=== PATIENT | female | born 1935 | race Caucasian/White ===

== ENCOUNTER → 2024-04-17 09:24 | Outpatient (REF) | payer MEDICARE, OTHER, SELFPAY ==
[2024-04-17 12:16] LABS: Blood Urea Nitrogen 19 mg/dl (7-17); Calcium 9.6 mg/dl (8.4-10.2); Carbon Dioxide 30 mmol/L (22-30); Chloride 99 mmol/L (98-107); Glucose 99 mg/dl (70-99); Potassium 4.5 mmol/L (3.5-5.1); Sodium 138 mmol/L (135-145); eGFR > 60.00
== END ==
LOC: REG 09:24
PROVIDERS: ATTENDING PHYSICIAN Thoracic Surgery (Cardiothoracic Vascular Surgery); FAMILY PHYSICIAN Internal Medicine; REFERRING PHYSICIAN Internal Medicine Critical Care Medicine
DX: D49.89 Neoplasm of unspecified behavior of other specified sites (principal)
CPT/HCPCS: 36415; 80048

== ENCOUNTER → 2024-04-28 10:05 | Outpatient (REF) | payer MEDICARE, OTHER, SELFPAY | LOC: RAD 10:05 | PROVIDERS: ATTENDING PHYSICIAN Thoracic Surgery (Cardiothoracic Vascular Surgery) | DX: D49.89 Neoplasm of unspecified behavior of other specified sites (principal) | CPT/HCPCS: 71270; Q9967 ==

== ENCOUNTER → 2024-06-10 14:30 | Outpatient (REF) | payer MEDICARE, OTHER, SELFPAY | LOC: WDC 14:30 | PROVIDERS: ATTENDING PHYSICIAN Family Medicine | DX: Z12.31 Encounter for screening mammogram for malignant neoplasm of breast (principal) | CPT/HCPCS: 77063; 77067 ==

== ENCOUNTER → 2025-07-03 10:08 | Outpatient (REF) | payer MEDICARE, OTHER, SELFPAY | LOC: HWRCS 10:08 | PROVIDERS: ATTENDING PHYSICIAN Physician Assistant; FAMILY PHYSICIAN Family Medicine | DX: I10 Essential (primary) hypertension (principal); I47.0 Re-entry ventricular arrhythmia; R06.09 Other forms of dyspnea | CPT/HCPCS: 93306 ==

== ENCOUNTER → 2025-07-14 14:06 | Outpatient (REF) | payer MEDICARE, OTHER, SELFPAY | LOC: WDC 14:06 | DX: Z12.31 Encounter for screening mammogram for malignant neoplasm of breast (principal) | CPT/HCPCS: 77063; 77067 ==

== ENCOUNTER 2025-07-21 21:53 | Inpatient (IN) | payer MEDICARE, OTHER, SELFPAY ==
[2025-07-21] VITALS (8 sets, daily range): BP systolic 141–213; BP diastolic 77–121; BMI 28.5; BMI 27.3
--- NOTE | 2025-07-21 19:08 | ED.GENMED ---
History of Present Illness
General
Chief Complaint: Heart Rate Problem
Source: patient, records and family
Exam Limitations: none
Time Seen by Provider: 07/21/25 18:46
Nursing documentation reviewed up to this point in time: agreed with
History of Present Illness
History of Present Illness:
89-year-old female history of PAF she is anticoagulated on Xarelto, medications are Coreg, which was recently started, Xarelto, Lasix
Earlier today developed a fast heart rate fatigue dizziness mild headache, feels short of breath so much so that she has trouble walking, similar episodes in the past, never required cardioversion,
Past History
Past History
ED Past Medical History: Cancer (Breast CA) and HTN; Negative NIDDM
ED Past Surgical History: Orthopedic (Ankle surgery) and Other (Cataracts, right Mastectomy); Negative Cardiac
Social History
Tobacco: Non-smoker
Alcohol: None
Drug: None
Personal:
Living: alone
Employment: Retired
Family History
Family History: Other (Contributory)
Review of Systems
Review of Systems
All Other Systems: Not applicable
Constitutional: Reports fatigue; Denies chills
Cardiac: Reports diaphoresis and palpitations; Denies chest pain
ABD/GI: Reports no symptoms
: Reports no symptoms
Musculoskeletal: Reports no symptoms
Neurological: Reports dizzy, headache and weakness
Endocrine: Reports no symptoms
Hematologic/Lymphatic: Reports no symptoms
Phy Exam
Physical Exam
Physical Exam:
Physical Exam
General: 89 female dyspneic
Neck: Positive J VD
Heart: Tachycardic
Lungs: Crackles at the base
Abdomen: Nontender
Neuro: alert and oriented. no focal neurological deficits
Skin: no rash
Psychiatric: well kept. interactive and cooperative
Extremities: Edema is present
Course
Orders/Labs/Results
Orders:
Orders
07/21/25 17:54
ECG [Electrocardiogram (*1)] Urgent
Reason for Study: Tachycardia
EKG- Treatment ONCE
07/21/25 19:04
IV Insert/Care/Rem.- Treatment PRN
Diltiazem HCl [Cardizem] 20 mg IV NOW STA
07/21/25 19:05
Cardiac Monitoring- Treatment ONCE
Diltiazem 125 mg/125 ml Nss [Cardizem] 125 mg in 125 ml IV NOW
Initial dose in mg/hr, then titrate:: 5
Titrate to keep:: Heart rate 80-100 bpm
Titrate by mg/hr:: 5 mg/hr
Frequency of titrations (minutes):: 15
Maximum dose in mg/hr:: 15
CR Chest Portable - 1 View Urgent
Comment:
Reason For Exam: sob
Reason Study Needs to be Portable: Patient Unstable
07/21/25 19:09
CT Head W/o Iv Contrast Urgent
Comment:
Reason For Exam: Headache weakness anticoagulated
07/21/25 19:19
Complete Blood Count/With Diff Urgent
Comprehensive Metabolic Panel Urgent
Magnesium Urgent
NT-proBNP Urgent
TSH Urgent
Troponin I Urgent
Abnormal Lab Results
07/21/25
19:19
RBC 4.07 L 10^6/uL
(4.20-5.40)
MCV 99.8 H fL
(81.0-99.0)
MCH 33.7 H pg
(27.0-31.0)
MPV 11.5 H fL
(7.4-10.4)
Absolute Monos (auto) 0.8 H 10^3/uL
(0.1-0.6)
Lymphocytes % 16.7 L %
(20.5-51.1)
Monocytes % 11.5 H %
(1.7-9.3)
Sodium 134 L mmol/L
(135-145)
Glucose 103 H mg/dl
(70-99)
07/21/25 19:19
07/21/25 19:19
Vital Signs
Initial and Last Documented VS:
Initial Vital Signs
Temp Pulse Resp BP Pulse Ox
97.9 F 126 18 213/121 95
07/21/25 17:50 07/21/25 17:50 07/21/25 17:50 07/21/25 17:50 07/21/25 17:50
Last Documented Vital Signs
Temp Pulse Resp BP Pulse Ox
97.9 F 90 20 162/88 95
07/21/25 17:50 07/21/25 20:30 07/21/25 20:30 07/21/25 20:00 07/21/25 19:09
MDM/Problems Addressed
Differential Diagnosis Includes:
A-fib RVR heart failure ischemia deconditioning electrolyte abnormality thyroid
MDM/Problems Addressed:
Tachycardia
Chronic conditions affecting care: Arrhythmia
Acute Exacerbation and/or Progression of Chronic Illness: Arrhythmia
*Radiology
Radiology exam reviewed: preliminary read by ED provider
*Pulse Oximetry
SaO2: 95
Oxygen Mode of Delivery: Room air
Patient hypoxic: no
*EKG
Interpreted by ED Provider?: Yes
Interpretation: abnormal
Comparison EKG: no comparison EKG present
Heart Rate: 145
Rate: tachycardiac
Rhythm: a-fib
Ischemia: non-specific ST changes
*Novelty Chain Maker Interpretation
Rate: tachycardiac
Interpretation: abnormal
Heart Rate: 145
Rhythm: a-fib
*Critical Care Note
Total Time (30-74mins, 75-104mins- exclusive of procedures): 30
Update Note
Update Note:
915 update patient still in A-fib rapid response on 5 mg of diltiazem, I did previously mention cardioversion to her, she never had that before, she is also recently eating dinner, not ideal, message sent to hospitalist and installer interior assemblies, will keep
her in the hospital and IV Dilt,
ED Attending Note
-
Portions of this chart may have been created with voice recognition software.� Occasional wrong word or��sound alike� substitutions may have occurred due to the inherent limitations of voice recognition software.
Discharge Plan
Departure
Patient Disposition: Admit
Date of Disposition: 07/21/25
Time of Disposition: 21:21
Admit to: IVU
Presentation/result/management discussed w/ accepting MD/DO: Hospitalist
Patient with high blood pressure during this ER visit?: Yes
Condition: Fair
Discharge Problem:
Atrial fibrillation with RVR
Prescriptions:
No Action
amlodipine 5 mg Tablet
5 mg PO DAILY
metoprolol tartrate 50 mg Tablet
50 mg PO BID
Xarelto 20 mg Tablet
20 mg PO QPM
Rx Instructions:
Hold for IR procedure 08/31 x 2 days
furosemide 20 mg Tablet
20 mg PO DAILY
hydralazine 10 mg tablet
10 mg PO BID Qty: 14 0RF
Referrals:
Maryjane Butler MD [Family Provider, Family Practice]
Interventions
Interventions:
*Risk Screen - Suicide Last Done: 07/21/25 17:50
*General Assessment Last Done: 07/21/25 19:04
*Neglect/Abuse Screening Last Done: 07/21/25 19:04
*ED- Fall Risk Assessment Last Done: 07/21/25 19:36
*ED COVID-19 Vaccine History Last Done: 07/21/25 19:36
ED- Cardiac Assessment Last Done: 07/21/25 19:04
ED- Pulmonary Assessment Last Done: 07/21/25 19:36
Discharge Date and Time
Print Language: THAI
[2025-07-21] MEDS: CARDIZEM 125 IV (19:24)
[2025-07-21] MEDS: CARDIZEM 20 MG IV (19:24)
[2025-07-21 19:50] LABS: ALT (SGPT) 16 U/L (0-35); AST (SGOT) 25 U/L (14-36); Albumin 4.3 g/dl (3.5-5.0); Alkaline Phosphatase 82 U/L (38-126); Blood Urea Nitrogen 14 mg/dl (7-17); Calcium 9.4 mg/dl (8.4-10.2); Carbon Dioxide 27 mmol/L (22-30); Chloride 101 mmol/L (98-107); Estimated Creatinine Clearance 63 ml/min; Glucose 103 mg/dl (70-99); Magnesium 2.0 mg/dl (1.6-2.3); Potassium 4.4 mmol/L (3.5-5.1); Sodium 134 mmol/L (135-145); Total Protein 6.6 g/dl (6.3-8.2); eGFR > 60.00
[2025-07-21 20:07] LABS: Troponin I 0.013 ng/ml
[2025-07-21 20:24] LABS: Hematocrit 40.6 % (37.0-47.0); Hemoglobin 13.7 g/dL (12.0-16.0); Mean Corp Hgb Conc. 33.7 g/dL (33.0-37.0); Mean Corpuscular Volume 99.8 fL (81.0-99.0); Nucleated Red Blood Cells % 0 %; Platelet Count 232 10^3/uL (130-400); Red Cell Dist. Width 13.3 % (11.5-14.5)
--- NOTE | 2025-07-21 20:42 | EDRN ---
Pt started Cardizem at 192. At 193, Pt HR was between 80 and 100, BP had started to come down. At 1953, Pt HR was still between 80-100, and Pt stated that she was feeling better. Cardizem was not titrated due to parameters being met at 5 mg/hr.
--- NOTE | 2025-07-21 21:22 | HPS.HSE ---
Addendum entered and electronically signed by Emily Macario MD 07/21/25 23:33:
This is an addendum to the H&P written by Ysabel Brown on 07/21/2025. �Patient seen and examined independently with HORTICULTURAL WORKER
89-year-old female past medical history of paroxysmal atrial fibrillation on Xarelto, hyponatremia, breast cancer, hypertension, presenting with elevated heart rate, fatigue and dizziness and mild headache and shortness of breath.� Follows [facility].�
Vital signs reveal blood pressure 213/121. �Heart rate of 126.
EKG shows atrial fibrillation with RVR up to 129.
Patient started on Cardizem drip. �TSH pending. �Echocardiogram from 07/03 shows normal ejection fraction. �CT head shows no acute abnormality.
Patient not interested in cardioversion tonight. �Cardiology consulted. �N.p.o. past midnight.
Original Note:
Family Physician
-
Family Physician: Maryjane Butler MD
Chief Complaint
-
rapid heart rate
History of Present Illness
89-year-old female history of PAF, HTN m presented to us with rapid heart rate while she was sitting and watching TV. for some weeks, she is having trouble with rapid heart rate for which she was started on Metoprolol with no relief in her
symptoms. metoprolol was switched to some other medication now she is on coreg for past 6 days. she felt very sob, fatigue, dizzy and was having trouble walking. denied chest pain.denied abdominal pain,n,v,d. denied dysuria or hematuria.
Upon arrival patient was noted in A-fib with RVR. Cardizem initiated. Admitted for further management
Medical History
Past Medical History
Past Medical History: Reports Other
Additional Past Medical History:
Breast cancer
PMH
Hypertension
A-fib
Colon polyps
Shingles
Past Surgical History: Reports Other
Additional Past Surgical History:
Cataract extraction
Weight
Right ankle fracture
Social History
Tobacco: Non-smoker
Alcohol: None
Drug: None
Family History
Family History: Not pertinent
Allergies / Home Medications
Allergies reflects when Allergies were last updated in [facility].
Home Medications with original date entered in [facility]
Allergy/Medication List:
Allergies
Allergy/AdvReac Type Severity Reaction Status Date / Time
No Known Allergies Allergy Verified 07/21/25 17:50
Home Medications
amlodipine 5 mg tablet 5 mg PO DAILY 08/28/23
metoprolol tartrate 50 mg tablet 50 mg PO BID 08/28/23
rivaroxaban 20 mg tablet (Xarelto) 20 mg PO QPM 08/28/23
furosemide 20 mg tablet 20 mg PO DAILY 08/31/23
hydralazine 10 mg tablet 10 mg PO BID #14 tabs 09/23/23
Review of Systems
-
Constitutional: Reports No Symptoms
EENT: Reports No Symptoms
Respiratory: Reports Trouble Breathing
Cardiac: Reports Palpitations
Abdomen/GI: Reports No Symptoms
: Reports No Symptoms
Musculoskeletal: Reports No Symptoms
Skin: Reports No Symptoms
Neurological: Reports Dizzy and Weakness
Endocrine: Reports No Symptoms
Hematologic/Lymphatic: Reports No Symptoms
Psych: Reports No Symptoms
Physical Exam
Vital Signs
Vital Signs
Temp Pulse Resp BP Pulse Ox
97.9 F 90 20 162/88 95
07/21/25 17:50 07/21/25 20:30 07/21/25 20:30 07/21/25 20:00 07/21/25 19:09
Physical Exam
General: Well Developed, Well Nourished and No Apparent Distress
HEENT: NormoCephalic, Moist mucous membranes and Atraumatic
Respiratory: Clear
Cardiac: Irregular Rhythm and Tachycardia; No Murmur or Rub
GI: Soft, Non Tender, Non Distended and Normal Bowel Sounds; No Organomegaly
Rectal: Deferred by Provider
Musculoskeletal: No Clubbing, No Cyanosis and No Edema
Skin: No Rash
Neuro: Nonfocal/grossly intact
Laboratory Results
-
07/21/25 19:19
07/21/25 19:19
Laboratory Results
Total Bilirubin 0.7 mg/dl (0.2-1.3) 07/21/25 19:19
AST 25 U/L (14-36) 07/21/25 19:19
ALT 16 U/L (0-35) 07/21/25 19:19
Alkaline Phosphatase 82 U/L (38-126) 07/21/25 19:19
Troponin I 0.013 ng/ml 07/21/25 19:19
Data Reviewed
-
Lab Data: Labs Reviewed by me
Impression/Plan
-
#atrial fib with RVR
-iv Cardizem continued
-cardioversion tomorrow
-NPO after MN
-Continue Coreg and Xarelto
# Essential hypertension
-Hydralazine continued
-Lasix continued
# DVT prophylaxis
-On Xarelto
# CODE STATUS
-Full code
-
[2025-07-21 22:54] LABS: TSH 2.13 uIU/ml (0.47-4.68)
[2025-07-21] MEDS: XARELTO 20 MG PO (23:49)
[2025-07-21] MEDS: APRESOLINE 25 MG PO (23:49)
[2025-07-22] VITALS (12 sets, daily range): BP systolic 118–157; BP diastolic 54–84; BMI 27.3
--- NOTE | 2025-07-22 04:42 | PTCARENOTE ---
Rec'd pt as admission from ED. Pt AAO*3, VSS, and Afib on TELE monitor. Pt denies any pain or discomfort. Cardizem infusing as ordered with HR in the 80's. Pt kept NPO after midnight for possible procedure in AM and now resting with call esteban in
reach. See MAR and flowchart for full pt care and assessment.
[2025-07-22] MEDS: LASIX 20 MG PO (09:02)
[2025-07-22] MEDS: COREG 6.25 MG PO ×2 (09:02→15:40)
[2025-07-22] MEDS: APRESOLINE 25 MG PO ×3 (09:02→22:21)
--- NOTE | 2025-07-22 09:45 | CM ---
Reviewed chart. Met with Mrs. Rodriguez and her daughter to review discharge plans. She states prior to admission she resides alone in a one level in-law suite attached to her daughters home. She states she has one step to enter the home. She states
prior to admission she was independent with ambulation and adls. She states she does not have any DME in the home. She states she has a prescription plan and uses [facility]. Medical work-up in progress. The discharge plan is to return home
when medically stable.
--- NOTE | 2025-07-22 11:20 | CON.CAR ---
Addendum entered and electronically signed by Juan Blair MD 07/22/25 15:22:
I personally performed a history and physical exam of the patient and discussed management with the resident. I reviewed the resident's note and agree with the documented findings and plan of care [facility]/CC.
PLan:
89-year-old female well-known to me with past medical history of hypertension, paroxysmal atrial fibrillation, breast cancer who presents to [facility] with palpitations and recurrent atrial fibrillation. Patient has been having
difficulties with palpitations and blood pressure issues as an outpatient. She was transition from metoprolol to diltiazem and ultimately to carvedilol over the past several weeks. Last yesterday she had episodes of skips and flutters and
palpitation was found to be in atrial fibrillation with rapid ventricular rate. She denies any chest pains, shortness of breath, orthopnea, PND, or edema. He does have fatigue and malaise. Her blood pressure have been better on the carvedilol.
Continue IV diltiazem and increase carvedilol to 12.5 mg p.o. twice daily. Check echocardiogram. Continue Xarelto. Has been compliant with the medication.
If she remains in A-fib in a.m. would proceed with elective cardioversion to attempt to restore sinus rhythm.
Recent echo from this month with preserved ejection fraction, mild MR and aortic sclerosis.
I had a lengthy discussion with her and her daughter regarding further treatment options for atrial fibrillation. They are interested in ablation and will arrange electrophysiology follow-up as outpatient.
Original Note:
Consultation
Consultation Request
Date/Time Consultation Requested: 07/21/25 21:43
Date/Time Consultation Performed: 07/22/25 10:30
Requesting Provider: Bear Burgos DO
Performing Provider: Cristofer Saucedo DO (Resident); Edmund Blair MD
Reason for Consultation: Palpitations
Medical History
-
Chief Complaint: Palpitations
History of Present Illness:
Jermaine Quiroz is a 89 F with a PMHx of atrial fibrillation with a recent rate-controlling medication change to Coreg 1 week ago, anticoagulated with Xarelto, HTN, fluid retention, and breast CA with radiation therapy to the right breast in 2005 who
is presenting with palpitations.
Patient states that she was diagnosed with atrial fibrillation approximately 2 years ago when she was hospitalized with RVR. At that time, patient was started on rate-control with Metoprolol, and her symptoms were adequately controlled until about 2
months ago when she started experience palpitations again. These symptoms were initially attempted to be managed with escalating doses of metoprolol (maxed at 75mg BID) without adequate response. 2 weeks ago, the patient was transitioned from
Metoprolol to Cardizem 120mg BID. 1 week into therapy, the patient continued to feel palpitations and a general feeling of unease, so she was then switched to Coreg 6.25 mg BID. Patient initially felt better on this medication for a few days but
then started to notice palpitations again. Yesterday, the patient continued to feel a general feeling of unease, as well as SOB and fatigue, and was brought to the emergency department. Otherwise denies, chest pains, headaches, dizziness,
pre-syncope, LOC or uncontrolled lower extremity edema.
ED COURSE
CBC wnl, CMP unremarkable, CXR neg, Head CT w/o IV neg, TSH nml, troponin neg, BNP WNL
EKG A/fib w/ RVR
Patient started on Cardizem drip
Patient states that she feels better this morning, denies feelings of palpitations, chest pains, SOB.
Past Medical History
Past Medical History: HTN and Other (a/fib, fluid retention, breast CA)
Past Surgical History: Other (cataract, mastectomy, R ankle)
Social History
Tobacco: Non-Smoker
Alcohol: Occasional
Drug: None
Family History
Family History: Reviewed & Not Pertinent
Allergies / Home Medications
Allergy/AdvReac Type Severity Reaction Status Date / Time
No Known Allergies Allergy Verified 07/21/25 17:50
�Medication �Instructions �Recorded �Confirmed �Type
rivaroxaban 20 mg tablet (Xarelto) 20 mg PO QPM 08/28/23 07/21/25 History
furosemide 20 mg tablet 20 mg PO DAILY 08/31/23 07/21/25 History
carvedilol 6.25 mg tablet 6.25 mg PO BID 07/21/25 07/21/25 History
hydralazine 10 mg tablet 25 mg PO TID 07/21/25 07/21/25 History
Review of Systems
-
History Source: Patient
All other systems: Negative unless noted
Physical Exam
Vital Signs
Temp Pulse Resp BP Pulse Ox
98.3 F 79 12 137/80 94
07/22/25 07:24 07/22/25 08:15 07/22/25 07:24 07/22/25 09:02 07/22/25 07:25
Lab Results
07/21/25 19:19
07/21/25 19:19
Troponin I 0.013 ng/ml 07/21/25 19:19
Krx-A-Tbvfgkldbtk Pept 425 pg/ml 07/21/25 19:19
Physical Exam
General: No Apparent Distress and Comfortable
Respiratory: Clear and Non Labored Respirations; Negative Wheezes, Crackles or Rhonchi
Cardiac: S1/S2, Irregular Rhythm and Other (regular rate); Negative Murmur or JVD
Skin: Warm
Neuro: Awake
Psych: Calm
Impression / Plan
-
Jermaine Quiroz is a 89 F with a PMHx of atrial fibrillation with a recent rate-controlling medication change to Coreg 1 week ago, anticoagulated with Xarelto, HTN, fluid retention, and breast CA with radiation therapy to the right breast in 2005 who
is presenting with palpitations, noted to be in A/fib with RVR by EKG in the ED and started on a Cardizem drip with recurrent runs of a/fib on telemetry.
PLAN
- Increase Coreg to 12.5mg BID
- Attempt to wean Cardizem drip
- If patient still in afib tomorrow, will consider cardioversion
- Outpatient follow up with EP to discuss risks and benefits of ablation
- Okay to eat today; NPO after midnight
Data Reviewed
-
EKG: Tracing Personally Visualized and interpreted, Report Reviewed by me and Discussed with Patient
Labs: Labs Reviewed by me and Discussed with Patient
Old Records: Reviewed
Critical Care Time (in minutes): 32
--- NOTE | 2025-07-22 13:56 | W.PN.HOSP.TC ---
Today's Communication/Plan
-
Assessment / Plan
Assessment / Plan
Atrial fibrillation with RVR
Increase Coreg to 12.5 twice daily
Wean Cardizem
If remains in atrial fibrillation plan for cardioversion tomorrow
Outpatient follow-up with cardiology/EP to discuss benefits of ablation
N.p.o. after midnight
2D echocardiogram
Continue anticoagulation with Xarelto
Hypertension
Continue antihypertensives
DVT prophylaxis on Xarelto
Anticipated Discharge: 24 - 48 hours
Subjective/Interval History
-
Date of Service: July 22, 2025
Seen and examined. No new complaints. No acute overnight events.
Objective Data
-
Vital Signs:
Vital Signs
Temp Pulse Resp BP Pulse Ox
98.5 F 75 18 137/80 92
07/22/25 13:00 07/22/25 13:00 07/22/25 13:00 07/22/25 09:02 07/22/25 13:00
I&O
07/21/25 07/22/25 07/23/25
06:59 06:59 06:59
Intake Total 240 / 240
Balance 240 / 240
Physical Exam
-
General: Well Developed, Well Nourished, No Apparent Distress and Comfortable
HEENT: Normocephalic and Atraumatic
Respiratory: Clear to Auscultation
Cardiac: S1/S2 and Irregular Rhythm
GI: Soft, Nontender and Nondistended
Musculoskeletal: No Clubbing, No Cyanosis and No Edema
Neuro: Awake and AO x 3
Psych: Calm
--- NOTE | 2025-07-22 15:00 | PTCARENOTE ---
Monitor showing pt converted from AF to NSR, EKG obtained. Dr. Blair made aware. To receive increased dose of coreg, then d/c cardizem drip. Informed pt/daughter of plan, all questions answered. Pt resting comfortably.
[2025-07-22] MEDS: XARELTO 20 MG PO (17:16)
[2025-07-22] MEDS: COREG 12.5 MG PO (21:21)
--- NOTE | 2025-07-22 22:50 | PTCARENOTE ---
Rec'd pt at change of shift. Pt AAO*3, VSS, and SR on TELE monitor. Pt denies any pain or discomfort. NPO after midnight as ordered. PT and family updated on plan of care. See MAR and flowchart for full pt care and assessment.
[2025-07-23 04:07] VITALS: BP 129/69
[2025-07-23 04:08] VITALS: BMI 27.2
[2025-07-23 07:42] VITALS: BP 139/73
[2025-07-23] MEDS: COREG 12.5 MG PO (08:23)
[2025-07-23] MEDS: LASIX 20 MG PO (08:23)
[2025-07-23] MEDS: APRESOLINE 25 MG PO ×2 (08:23→15:55)
--- NOTE | 2025-07-23 10:19 | W.PN.CARDCBS ---
Addendum entered and electronically signed by Juan Blair MD 07/23/25 17:46:
I saw and examined the patient.
The Laboratory Monitor's note was reviewed and I agree with the note.
Comment:
GEN: No distress, awake, Ox3
HEENT: supple, anicteric, mmm
LUNGS: CTA, no wheezes/rales
CV: Reg, S1/S2, 1/6 syst LSB, no gallop
ABD: soft, BS+, NT/ND
EXT: No edema
NEURO: Gross non-focal
SKIN: No rash
Plan:
She is back in sinus rhythm. Okay for discharge. Continue Coreg 12.5 mg twice daily and Xarelto.
Continue hydralazine and furosemide. Blood pressure is stable
We discussed ablation and she prefers to discuss this with Dr. Hartley as outpatient.
Original Note:
Today's Communication / Plan
-
Coreg 12.5 mg twice daily
Xarelto 20 mg every afternoon
Continue outpatient hydralazine and furosemide
Will arrange outpatient EP follow-up
for discharge
Impression / Plan
-
Primary Rn Perioperative: Dr. Blair
Assessment:
Paroxysmal atrial fibrillation, with RVR, s/p spontaneous conversion to SR 07/22/25
Chronic anticoagulation with Xarelto
Hypertension
Chronic heart failure with preserved EF
History of R breast cancer with radiation therapy 2005
ECHO 07/03/2025: EF 68%, mild MAC, mild MR, aortic sclerosis, normal right heart
PLAN:
-Patient presented with atrial fibrillation with rapid ventricular response. She was initially placed on IV Cardizem drip and her outpatient Coreg dose was increased from 6.25 mg twice daily to 12.5 mg twice daily
-She spontaneously converted to sinus rhythm around 1:30 yesterday afternoon and has remained in sinus rhythm since that time
-Continue outpatient Xarelto
-Recent echo with results as above
-Will arrange outpatient cardiac follow-up with EP to discuss ablation
-Okay for discharge today
-Discussed with nursing
-Discussed with hospitalist via [facility] text
Progress Note - Rn Perioperative
Subjective
Date of Service: July 23, 2025
No issues. Feeling well. Eager for discharge
Objective
Labs:
07/21/25 19:19
07/21/25 19:19
Labs
Hgb 13.7 g/dL (12.0-16.0) 07/21/25 19:19
Hct 40.6 % (37.0-47.0) 07/21/25 19:19
Plt Count 232 10^3/uL (130-400) 07/21/25 19:19
Sodium 134 mmol/L (135-145) L 07/21/25 19:19
Potassium 4.4 mmol/L (3.5-5.1) 07/21/25 19:19
BUN 14 mg/dl (7-17) 07/21/25 19:19
Creatinine 0.6 mg/dL (0.6-1.0) 07/21/25 19:19
Glucose 103 mg/dl (70-99) H 07/21/25 19:19
Troponins
07/21/25
19:19
Troponin I 0.013
Vital Signs and I&O:
Vital Signs
Temp Pulse Resp BP Pulse Ox
97.5 F 77 20 139/73 93
07/23/25 07:42 07/23/25 08:00 07/23/25 07:42 07/23/25 07:42 07/23/25 08:15
Vital Signs
Temp Pulse Resp BP Pulse Ox
97.5 F 77 20 139/73 93
07/23/25 07:42 07/23/25 08:00 07/23/25 07:42 07/23/25 07:42 07/23/25 08:15
Intake & Output
07/21/25 07/22/25 07/23/25 07/24/25
07:59 07:59 07:59 07:59
Intake Total 240 / 240 480 / 480
Balance 240 / 240 480 / 480
Physical Exam
Physical Exam
GEN: No distress, awake, alert, oriented x3
HEENT: supple, anicteric, mmm, EOMI
LUNGS: CTA bilaterally, no wheezes/rales
CV: Reg, S1/S2, no murmur
ABD: soft, BS+, NT/ND
EXT: No cyanosis, clubbing, edema
NEURO: Gross non-focal
SKIN: Warm, pink, dry. No rash
--- NOTE | 2025-07-23 11:56 | CM ---
Reviewed chart. Met with Mrs. Quiroz and daughter to review discharge plans. She states she is feeling well and maybe able to go home soon.
Prior to admission she resides alone in a one level in-law suite attached to her daughters home. She has one step to enter the home. Prior to admission she was independent with ambulation and adls. She does not have any DME in the home. She has
a prescription plan and uses [facility]. Medical work-up in progress. The discharge plan is to return home when medically stable.
[2025-07-23 11:59] VITALS: BP 114/66
[2025-07-23 15:13] VITALS: BP 111/54
--- NOTE | 2025-07-23 15:53 | W.DCSUMMARY ---
Discharge Summary
Discharge Data
Date of Admission: 07/21/25
Date of Discharge: 07/23/25
-
Pending Results: No
Hospital Course
89 female who presented with palpitations fatigue dizziness mild headache along with shortness of breath. Found to be in atrial fibrillation with RVR and hypertensive. Seen by cardiology which recommended to wean Cardizem drip increase carvedilol.
Eventually was able to convert to sinus rhythm and cardioversion was not needed as it was plan to cardiovert if still in atrial fibrillation the following day. Outpatient follow-up with electrophysiology to discuss risks and benefits of ablation.
Seen on the day of discharge which was 07/23/2025. No new complaints. No acute overnight events.
Feels significantly better since being in sinus rhythm
Sitting up in bedside chair
NAD
Scleral Anicteric
MMM
No JVD
CTABL
RRR, S1/S2
Soft, NT, ND, BS+
Warm, Dry
AAOx3
Calm
More than 30 minutes spent in discharge including
Final examination of the patient
Summarizing hospital stay
Instructions for continuing care to all relevant caregivers
Preparation of discharge records, prescriptions, and referral forms
Total time spent (in minutes): 33mins
Discharge Plan
-
Patient Disposition: Home (Routine Discharge)
Discharge Diagnosis/Procedures: Atrial fibrillation RVR
Condition: Good
Diet: As tolerated, Low Fat, Low Cholesterol, 2 Gram Sodium and No added salt
Activity: As tolerated
Activity Restrictions/Additional Instructions:
89 female who presented with palpitations fatigue dizziness mild headache along with shortness of breath. Found to be in atrial fibrillation with RVR and hypertensive. Seen by cardiology which recommended to wean Cardizem drip increase carvedilol.
Eventually was able to convert to sinus rhythm and cardioversion was not needed as it was plan to cardiovert if still in atrial fibrillation the following day. Outpatient follow-up with electrophysiology to discuss risks and benefits of ablation.
Referrals:
Maryjane Butler MD [Family Provider, [facility][1]]
Marcelino Pate DO [Active, Cardiology] - 08/25/25 10:20 am
Referral Note: You have an appointment with electrophysiology (cardiology) at the [place] office (same as Dr. Blair). Please call with questions
Prescriptions:
New
carvedilol 12.5 mg Tablet
12.5 mg PO BID Qty: 180 3RF
Continued
furosemide 20 mg Tablet
20 mg PO DAILY
hydralazine 10 mg tablet
25 mg PO TID
Xarelto 20 mg Tablet
20 mg PO QPM Qty: 0 0RF
Discontinued
carvedilol 6.25 mg tablet
6.25 mg PO BID
Discharge Orders:
Discharge Patient (As Directed); Ordered 07/23/25
Ordered By: Mateusz Fox
Care Plan Goals
Care Plan Goals:
Problem: Readiness for enhanced knowledge related to diagnosis and treatment plan
Goal: Understand your diagnosis and treatment plan needs, including medications if applicable.
Instructions: Know your diagnosis, underlying causes and treatment plan options, including medications if applicable. Consult with your health care team to learn about your diagnosis and treatment plan, including medications if applicable.
Discharge Date and Time
Print Language: GUYANESE
[2025-07-23 15:56] VITALS: BP 145/68
--- NOTE | 2025-07-23 16:12 | PTCARENOTE ---
IV and tele removed. Discharge instructions reviewed w/ pt and verbalizes understanding. Belongings collected and sent home w/ pt. D/c to home w/ family member.
== END 2025-07-23 16:13 | disposition home or self-care (01) | DRG 309 ==
LOC: IVU 21:53
PROVIDERS: ADMITTING PHYSICIAN Hospitalist; ATTENDING PHYSICIAN Hospitalist; CONSULT PHYSICIAN Internal Medicine Cardiovascular Disease; EMERGENCY PHYSICIAN Emergency Medicine; FAMILY PHYSICIAN Family Medicine
DX: I48.0 Paroxysmal atrial fibrillation (principal); E87.1 Hypo-osmolality and hyponatremia; I50.32 Chronic diastolic (congestive) heart failure; I10 Essential (primary) hypertension; Z79.01 Long term (current) use of anticoagulants; Z79.899 Other long term (current) drug therapy
CPT/HCPCS: 70450; 71045; 80053; 83735; 83880; 84443; 84484; 85025; 93005; 96365; 96366; 99291

== ENCOUNTER → 2025-09-02 12:40 | Outpatient (REF) | payer MEDICARE, OTHER, SELFPAY ==
[2025-09-02 13:35] LABS: INR 1.32; PT 16.9 Sec (11.4-14.6)
[2025-09-02 13:50] LABS: ALT (SGPT) 16 U/L (0-35); AST (SGOT) 26 U/L (14-36); Albumin 4.3 g/dl (3.5-5.0); Alkaline Phosphatase 66 U/L (38-126); Blood Urea Nitrogen 15 mg/dl (7-17); Calcium 9.3 mg/dl (8.4-10.2); Carbon Dioxide 31 mmol/L (22-30); Chloride 101 mmol/L (98-107); Glucose 108 mg/dl (70-99); Magnesium 1.9 mg/dl (1.6-2.3); Potassium 4.3 mmol/L (3.5-5.1); Sodium 136 mmol/L (135-145); Total Protein 6.9 g/dl (6.3-8.2); eGFR > 60.00
[2025-09-02 14:11] LABS: Hematocrit 41.5 % (37.0-47.0); Hemoglobin 14.3 g/dL (12.0-16.0); Mean Corp Hgb Conc. 34.5 g/dL (33.0-37.0); Mean Corpuscular Volume 98.8 fL (81.0-99.0); Nucleated Red Blood Cells % 0 %; Platelet Count 210 10^3/uL (130-400); Red Cell Dist. Width 13.0 % (11.5-14.5)
== END ==
LOC: SDSPAT 12:40
PROVIDERS: ATTENDING PHYSICIAN Internal Medicine Cardiovascular Disease; FAMILY PHYSICIAN Family Medicine; OTHER PHYSICIAN Internal Medicine Cardiovascular Disease
DX: I48.0 Paroxysmal atrial fibrillation (principal)
CPT/HCPCS: 36415; 75572; 80053; 83735; 85025; 85610; 86850; 86900; 86901; Q9967

== ENCOUNTER 2025-09-14 06:01 | Day surgery (SDC) | payer MEDICARE, OTHER, SELFPAY ==
[2025-09-02 13:11] VITALS: BMI 27.9
[2025-09-14] VITALS (12 sets, daily range): BP systolic 157–212; BP diastolic 72–90
--- NOTE | 2025-09-14 07:55 | ITS.CL.ABL ---
Special Systems Technician - Ablation
Ablation
Procedure Report:
Primary Medical Cost Consultant: Dr Edmund Blair
Procedure Date: 09/14/2025
Patient History:
Patient is a pleasant 89-year-old female with a past medical history significant for hypertension, history of breast cancer with radiation, symptomatic paroxysmal atrial fibrillation.
See H&P for complete details.
Indication:
Symptomatic paroxysmal atrial fibrillation
Arrhythmia Specific History:
Prior Medical Therapies for Rate and Rhythm Control:
X Beta-shelli
[ ] Calcium channel-shelli
[ ] Amiodarone
[ ] Dronederone
[ ] Sotalol
[ ] Flecainide
[ ] Dofetilide
[ ] Options limited by bradycardia
[ ] Options limited by comorbid renal disease
Prior Procedural Therapies for AF/AFL:
[ ] Cardioversion
[ ] Pulmonary Vein Isolation
[ ] Posterior Wall Isolation
[ ] Additional lines (Specify)
[ ] Surgical Joshi-MAZE or PVI (Specify)
Procedure Performed:
X AF ablation procedure (13571) -- includes LA/CS pacing, trans-septal, 3D mapping, + ICE
[ ] +IV drug (78309)
[ ] +Other Arrhythmia (99008)
[ ] +Other AF Line/ablation (21948)
Risks and expected recovery has been explained in detail. Alternative options have been explored, and in a shared-decision making fashion we have decided that this was the most appropriate procedure.
Method
NPO status confirmed. Grounding pad applied. Defibrillator pads applied. Continuous surface ECG, pulse oximetry, and blood pressure were monitored. Procedure was performed under general anesthesia, with anesthesia services.
Both groins were clipped, prepped with Chloraprep, and draped in sterile fashion. Time out was called. Local anesthesia administered with bupivacaine. The right femoral vein was accessed for catheter placement, using ultrasound guidance (images
saved to record), micro-puncture needle/wire, and modified seldinger technique. 3 sheaths were placed. The following catheters were used:
[ ] Tacticath SE (D/F Curve) ablation catheter
X Viewflex 9Fr ICE catheter
X Inquiry decapolar 6Fr diagnostic catheter
[ ] CRD Hex 6Fr
X FlexCath Contour 10 Fr with PulseSelect PFA Catheter
X Advisor HD Grid Mapping Catheter, SE
[ ] Acuson AcuNav 8 Fr ICE catheter
[ ]Other: [ ]
Intracardiac ultrasound (ICE) was carefully advanced into the right atrium to guide sheath placement over a J-wire, catheter placement, guide trans-septal puncture, identify potential complications, identify anatomic structures and ensure proper
contact between ablation catheter and tissue.
Heparin was given prior to trans-septal puncture. Heparin was given to achieve and maintain a target ACT of 300-400 seconds throughout the procedure.
Trans-septal access was performed under ICE guidance. The trans-septal puncture was performed with a SafeSept wire through a Brockenbrough needle assembly through the steerable sheath. The wire was visualized as it entered the LSPV and system
advanced under ICE guidance and fluoroscopy into the LA. The Brockenbrough needle assembly, SafeSept wire and sheath dilator were removed under negative pressure. LA pressure was measured and recorded.
ICE and 3D mapping was performed to identify relevant cardiac structures. A careful 3D map was created to assess for regions of low-voltage and abnormal electrogram signals using HD grid mapping catheter and PulseSelect catheter. Additional mapping
was performed as outlined below.
Prior to ablation, glycopyrrolate was provided. PulseSelect catheter was advanced over J-wire to the ostium of each vein. Pulmonary vein isolation was performed with ostial and antral lesions in a circumferential manner. Contact was visualized via
EAM, ICE, fluoroscopy, and EGM signals.
Following completion of ablation lesions, a post-ablation voltage/activation map was performed in sinus rhythm. Entrance and exit block were confirmed for each vein.
Catheter and sheath were removed from the left atrium and post-ablation intracardiac echo evaluation was consistent with pre-ablation with no changes and no pericardial effusion and there is no left atrial thrombus or left ventricle thrombus seen.
Electrophysiology study was performed. No arrhythmias were induced. hemostasis was obtained with figure of 8 stitch for each groin and with manual pressure. Protamine was used for reversal.
Estimated Blood Loss
5 mL
Complications
None
Fluoroscopy: 3.1 minutes; 6.8 mGy; DAP 0.9
LA Pressure: Pre 7 mmHg, post 7 mmHg
Baseline Intervals:
Rhythm: Sinus rhythm
MT: 198 ms
QRS: 88 ms
QT: 391 ms
Post-Procedure Intervals:
MT: 182 ms
QRS: 88 ms
QT: 407 ms
AVWB: 310 ms
AVNERP: 600/250 ms
AERP: 600/250 ms
Recommendations
- Bedrest with straight-leg precautions as ordered
- Anticipate same day discharge if patient meeting clinical metrics
- Resume home medications as indicated
- Ok to resume anticoagulation tonight if patient and groin sites stable
- Plan for follow-up in office as scheduled
Marcelino Pate, , FACC, RS
[facility] Consultant
cc: Dr Juan Blair; Dr Maryjane Butler
[2025-09-14 08:46] LABS: ACT-LR - POC 297 Seconds (116-155)
[2025-09-14 09:01] LABS: ACT-LR - POC 387 Seconds (116-155)
[2025-09-14 09:18] LABS: ACT-LR - POC 356 Seconds (116-155)
[2025-09-14 09:40] LABS: ACT-LR - POC 182 Seconds (116-155)
--- NOTE | 2025-09-14 14:24 | W.PN.UPDATE ---
Update Note
Progress Note Update
Pt seen post PFA. Right groin site without ht/bleeding, non tender. Post EKG NSR 68, no acute changes. Resume xarelto tonight at usual time. Followup at [facility] as scheduled. Home today if groin site/tele remain stable.
== END 2025-09-14 14:30 | disposition home or self-care (01) ==
LOC: CATH 06:01
PROVIDERS: ATTENDING PHYSICIAN Internal Medicine Cardiovascular Disease; FAMILY PHYSICIAN Family Medicine; OTHER PHYSICIAN Internal Medicine Cardiovascular Disease
DX: I48.0 Paroxysmal atrial fibrillation (principal); Z92.3 Personal history of irradiation; I10 Essential (primary) hypertension; Z85.3 Personal history of malignant neoplasm of breast
CPT/HCPCS: C1733; C1766; C1732; C1894; C1769; 85347; 86900; 86901; 93005; 93656